=== PATIENT | female | born 1950 | race Caucasian/White ===

== ENCOUNTER 2018-01-02 05:11 | Observation (INO) ==
[2018-01-02 06:02] LABS: Basophils # 0.1 K/mcL (0.0-0.2); Basophils % 0.8 %; Eosinophils # 0.3 K/mcL (0.0-0.6); Eosinophils % 2.3 %; Hemoglobin 13.7 g/dL (11.5-15.4); Lymphocytes # 2.3 K/mcL (0.6-4.6); Lymphocytes % 19.3 %; Mean Corpuscular HGB Conc 31.9 g/dL (31.6-35.5); Mean Corpuscular Volume 84.8 fL (83.0-100.0); Mean Platelet Volume 9.4 fL (9.4-12.4); Monocytes # 0.9 K/mcL (0.0-1.3); Monocytes % 7.6 %; Neutrophils # 8.1 K/mcL (1.6-8.9); Platelet Count 334 K/mcL (140-400); Red Blood Count 5.07 M/mcL (3.82-4.97); Red Cell Distribution Width 15.1 % (11.5-14.5)
[2018-01-02 06:09] LABS: INR 1.1; Prothrombin Time 11.6 Seconds (9.4-12.1)
[2018-01-02 06:11] LABS: Activated Partial Thrombo Time 36.3 Seconds (26.0-36.0)
[2018-01-02 06:20] LABS: Alanine Aminotransferase 15 Units/L (7-52); Albumin 3.7 g/dL (3.5-5.7); Albumin/Globulin Ratio 1.1 (1.1-2.2); Alkaline Phosphatase 73 Units/L (34-104); Aspartate Amino Transferase 13 Units/L (13-39); BUN/Creatinine Ratio 16 (6-26); Bilirubin,Total 0.5 mg/dL (0.3-1.0); Blood Urea Nitrogen 12 mg/dL (8-23); Calcium 8.8 mg/dL (8.6-10.3); Carbon Dioxide 26 mEq/L (23-29); Chloride 103 mEq/L (98-107); Ethanol < 10 mg/dL (Less than 10); Globulin 3.3 g/dL (2.4-3.5); Glucose 178 mg/dL (70-105); Osmolality,Calculated 286 (280-300); Potassium 3.8 mEq/L (3.5-5.1); Sodium 136 mEq/L (136-145); eGFR For African Americans > 60 (> 60); eGFR For Non-African Americans > 60 (> 60)
[2018-01-02 07:51] LABS: Bilirubin,Urine Negative (Negative); Blood,Urine Large (Negative); Clarity,Urine Cloudy (Clear); Color,Urine Yellow (Yellow); Glucose,Urine (UA) Normal (Normal); Ketones,Urine Negative (Negative); Leukocyte Esterase,Urine Moderate (Negative); Nitrite,Urine Negative (Negative); Protein,Urine >=300 mg/dL (Neg-Trace); Urobilinogen,Urine Normal (Normal)
--- NOTE | 2018-01-02 07:58 | Emergency Department Note ---
Disposition Clinical Impression: Weakness UTI (urinary tract infection) Qualifiers: Urinary tract infection type: acute cystitis Hematuria presence: with hematuria Qualified Code(s): N30.01 - Acute cystitis with hematuria Disposition: Home, Self-Care Condition: Good Instructions: Urinary Tract Infection in Women (ED) Reasons to Return/Additional Instructions: You should follow up with your primary care physician and complete the course of antibiotics even if you feel better. Drink plenty of fluids and if he continued to have weakness he should follow up with your primary care physician you might need occupational or physical therapy and further images additional studies if warranted. Return to the emergency room should you have any chest pain shortness of breath weakness dizziness and altered mental status or fever or chills. Prescriptions: Ciprofloxacin [Cipro] 500 mg PO BID #20 tablet Referrals: Emily Barclay CNP [Primary Care Provider] - Forms: ED Satisfaction Letter Time of Disposition: 08:09 Fall HPI - General Chief Complaint: ED Fall Stated Complaint: Falls x 3 this month, increased weakness Source: patient, EMS - History of Present Illness HPI Narrative: Vision is a pleasant 67-year-old female who is presenting with repetitive falls in the past few weeks. She stated that her legs feel weak and gave out on him or. She denies any loss of imbalance or tripping over. She denies any dizziness or numbness neck stiffness or headache. She denies any shortness of breath or chest pain sheet. She denies any muscular skeletal discomfort. She denies nausea vomiting or diarrhea. She denies any urinary symptoms or vaginal complains. She denies any fever or chills. Review other systems otherwise negative except above Onset (ago): week(s) Place Fall Occurred: home Loss of Consciousness: none Symptoms Prior to Fall: lightheadedness - Related Data Home Medications Medication Instructions Recorded Confirmed ALPRAZolam [Xanax 1 MG Tablet] 0.5 mg PO TID PRN 08/06/15 11/02/17 Lisinopril [Zestril] 80 mg PO DAILY 11/02/16 11/02/17 Budesonide/Formoterol 160/4.5 1 puff IH BIDR 11/30/16 11/02/17 [Symbicort 160/4.5] Previous Rx's Medication Instructions Recorded Metoprolol XL (24 HR) Succ [Toprol 50 mg PO DAILY #30 tab.er.24h 11/04/16 XL] levoFLOXacin [Levaquin] 500 mg PO DAILY #7 tablet 11/02/17 Ciprofloxacin [Cipro] 500 mg PO BID #20 tablet 01/02/18 Allergies Allergy/AdvReac Type Severity Reaction Status Date / Time Sulfa (Sulfonamide Allergy Hives Verified 11/03/16 03:04 Antibiotics) All systems ED: reviewed and negative except as stated. Review of Systems: As Per HPI Fall PMH - Past Medical History Medical history: Reports: arthritis, COPD, hypertension, renal disease, other Surgical history: Reports: hysterectomy Psychiatric history: Reports: anxiety, depression, other - Social History Smoking Status: Current every day smoker Alcohol use: Reports: rarely Drug use: Reports: none Physical Exam - General Limitations: no limitations General appearance: alert, in no apparent distress - Head Head exam: atraumatic, normocephalic, normal inspection - Eye Eye exam: Present: normal appearance, PERRL, EOMI - Expanded Eye Exam Pupils: Left: reactive - ENT ENT exam: normal exam, normal oropharynx, mucous membranes moist - Expanded ENT Exam External ear exam: Present: normal external inspection Mouth exam: Present: normal external inspection Teeth exam: Present: normal inspection Throat exam: Present: normal inspection - Neck Neck exam: Present: normal inspection, full ROM, trachea midline - Chest Chest inspection: Present: normal inspection, symmetric chest wall rise - Respiratory Respiratory exam: Present: normal lung sounds bilaterally - Cardiovascular Cardiovascular exam: Present: regular rate, normal rhythm, normal heart sounds - Abdominal Exam Abdominal exam: Present: soft, Non-Tender. Absent: tenderness, distention, guarding, rebound, rigidity - Extremities Exam Extremities exam: Present: normal inspection, full ROM. Absent: tenderness, pedal edema - Expanded Upper Extremity Exam Shoulder exam: Present: normal inspection, full ROM Arm exam: Present: normal inspection, full ROM Elbow exam: Present: normal inspection, full ROM Forearm/Wrist exam: Present: normal inspection, full ROM Hand exam: Present: normal inspection, full ROM Vascular exam: Normal: capillary refill, radial pulse - Expanded Lower Extremity Exam Hip/Pelvis exam: Present: normal inspection, full ROM Upper leg exam: Present: normal inspection, full ROM Knee exam: Present: normal inspection, full ROM Lower leg exam: Present: normal inspection, full ROM Ankle exam: Present: normal inspection, full ROM Foot/toe exam: Present: normal inspection, full ROM Neurovascular/Tendon exam: Absent: motor deficit, sensory deficit, tendon deficit - Back Exam Back exam: Present: normal inspection, full ROM. Absent: tenderness - Neurological Exam Neurological exam: Present: alert, oriented X3, CN II-XII intact - Expanded Neurological Exam Patient oriented to: Present: person, place, time Coma Scale Eye Opening: Spontaneous Coma Scale Motor Response: Obeys Commands Coma Scale Verbal Response: Oriented Coma Scale Total: 15 - Psychiatric Psychiatric exam: Present: normal affect, normal mood - Skin Skin exam: Present: warm, dry, intact, normal color Course Vital Signs Temperature 97.0 F L 01/02/18 05:14 Pulse Rate 88 01/02/18 05:14 Respiratory Rate 18 01/02/18 05:14 Blood Pressure 128/64 01/02/18 05:14 O2 Sat by Pulse Oximetry 95 01/02/18 05:14 Temperature 97.0 F L 01/02/18 05:14 Pulse Rate 73 01/02/18 08:04 Respiratory Rate 18 01/02/18 08:04 Blood Pressure 147/63 01/02/18 08:04 O2 Sat by Pulse Oximetry 96 01/02/18 08:04 Oxygen Delivery Oxygen Delivery Room Air Fall - Lab Data Result diagrams: 01/02/18 05:53 01/02/18 05:53 Lab Results 01/02/18 01/02/18 01/02/18 Range/Units 05:53 05:53 05:53 WBC 11.9 H (4.3-11.1) K/mcL RBC 5.07 H (3.82-4.97) M/mcL Hgb 13.7 (11.5-15.4) g/dL Hct 43.0 (35.3-44.9) % MCV 84.8 (83.0-100.0) fL MCH 27.0 L (28.0-33.3) pg MCHC 31.9 (31.6-35.5) g/dL RDW 15.1 H (11.5-14.5) % Plt Count 334 (140-400) K/mcL MPV 9.4 (9.4-12.4) fL Immature Gran % 2.0 (0-4) % Seg Neutrophils % 68.0 % Lymphocytes % 19.3 % Monocytes % 7.6 % Eosinophils % 2.3 % Basophils % 0.8 % Neutrophils # 8.1 (1.6-8.9) K/mcL Lymphocytes # 2.3 (0.6-4.6) K/mcL Monocytes # 0.9 (0.0-1.3) K/mcL Eosinophils # 0.3 (0.0-0.6) K/mcL Basophils # 0.1 (0.0-0.2) K/mcL PT 11.6 (9.4-12.1) Seconds INR 1.1 APTT 36.3 H (26.0-36.0) Seconds Sodium 136 (136-145) mEq/L Potassium 3.8 (3.5-5.1) mEq/L Chloride 103 (98-107) mEq/L Carbon Dioxide 26 (23-29) mEq/L BUN 12 (8-23) mg/dL Creatinine 0.77 (0.60-1.20) mg/dL Est GFR ( Amer) > 60 (> 60) Est GFR (Non-Af Amer) > 60 (> 60) BUN/Creatinine Ratio 16 (6-26) Glucose 178 H (70-105) mg/dL Calculated Osmolality 286 (280-300) Calcium 8.8 (8.6-10.3) mg/dL Total Bilirubin 0.5 (0.3-1.0) mg/dL AST 13 (13-39) Units/L ALT 15 (7-52) Units/L Alkaline Phosphatase 73 (34-104) Units/L Serum Total Protein 7.0 (6.4-8.9) g/dL Albumin 3.7 (3.5-5.7) g/dL Globulin 3.3 (2.4-3.5) g/dL Albumin/Globulin Ratio 1.1 (1.1-2.2) Urine Color (Yellow) Urine Clarity (Clear) Urine pH (5.0-8.0) pH Units Ur Specific [place] (1.010-1.025) Urine Protein (Neg-Trace) mg/dL Urine Glucose (UA) (Normal) mg/dL Urine Ketones (Negative) mg/dL Urine Blood (Negative) Urine Nitrite (Negative) Urine Bilirubin (Negative) Urine Urobilinogen (Normal) mg/dL Ur Leukocyte Esterase (Negative) Urine Microscopic RBC (0-3) per hpf Urine Microscopic WBC (0-3) per hpf Ur Squamous Epith Cells (None-Few) per lpf Ur Renal Epithelial Cell (None-Few) per hpf Urine Bacteria (None-Few) per hpf Urine Mucus (Few) Ur Culture Indicated? (NO) Ethyl Alcohol < 10 (Less than 10) mg/dL 01/02/18 Range/Units 07:30 WBC (4.3-11.1) K/mcL RBC (3.82-4.97) M/mcL Hgb (11.5-15.4) g/dL Hct (35.3-44.9) % MCV (83.0-100.0) fL MCH (28.0-33.3) pg MCHC (31.6-35.5) g/dL RDW (11.5-14.5) % Plt Count (140-400) K/mcL MPV (9.4-12.4) fL Immature Gran % (0-4) % Seg Neutrophils % % Lymphocytes % % Monocytes % % Eosinophils % % Basophils % % Neutrophils # (1.6-8.9) K/mcL Lymphocytes # (0.6-4.6) K/mcL Monocytes # (0.0-1.3) K/mcL Eosinophils # (0.0-0.6) K/mcL Basophils # (0.0-0.2) K/mcL PT (9.4-12.1) Seconds INR APTT (26.0-36.0) Seconds Sodium (136-145) mEq/L Potassium (3.5-5.1) mEq/L Chloride (98-107) mEq/L Carbon Dioxide (23-29) mEq/L BUN (8-23) mg/dL Creatinine (0.60-1.20) mg/dL Est GFR ( Amer) (> 60) Est GFR (Non-Af Amer) (> 60) BUN/Creatinine Ratio (6-26) Glucose (70-105) mg/dL Calculated Osmolality (280-300) Calcium (8.6-10.3) mg/dL Total Bilirubin (0.3-1.0) mg/dL AST (13-39) Units/L ALT (7-52) Units/L Alkaline Phosphatase (34-104) Units/L Serum Total Protein (6.4-8.9) g/dL Albumin (3.5-5.7) g/dL Globulin (2.4-3.5) g/dL Albumin/Globulin Ratio (1.1-2.2) Urine Color Yellow (Yellow) Urine Clarity Cloudy A (Clear) Urine pH 6.0 (5.0-8.0) pH Units Ur Specific [place] 1.020 (1.010-1.025) Urine Protein >=300 H (Neg-Trace) mg/dL Urine Glucose (UA) Normal (Normal) mg/dL Urine Ketones Negative (Negative) mg/dL Urine Blood Large H (Negative) Urine Nitrite Negative (Negative) Urine Bilirubin Negative (Negative) Urine Urobilinogen Normal (Normal) mg/dL Ur Leukocyte Esterase Moderate H (Negative) Urine Microscopic RBC 30-50 H (0-3) per hpf Urine Microscopic WBC TNTC H (0-3) per hpf Ur Squamous Epith Cells Moderate H (None-Few) per lpf Ur Renal Epithelial Cell Moderate H (None-Few) per hpf Urine Bacteria Moderate H (None-Few) per hpf Urine Mucus Moderate H (Few) Ur Culture Indicated? YES A (NO) Ethyl Alcohol (Less than 10) mg/dL
[2018-01-02 07:59] LABS: Bacteria,Urine Moderate per hpf (None-Few); Mucus,Urine Moderate (Few); RBC,Urine 30-50 per hpf (0-3); Renal Epithelial Cells,Urine Moderate per hpf (None-Few); Squamous Epithelial Cell,Urine Moderate per lpf (None-Few); WBC,Urine TNTC per hpf (0-3)
[2018-01-02] MEDS ORDERED: CefTRIAXone 1,000 MG VIAL IM ONE (08:15)
[2018-01-02] MEDS ORDERED: Metoprolol XL (24 HR) Succ 50 MG TAB.ER.24H PO STA (09:35)
[2018-01-02] MEDS ORDERED: Ketorolac 30 MG/ML VIAL IVP PRN (11:22)
[2018-01-02] MEDS ORDERED: *HR* HYDROcodone/Acet 5/325 mg TABLET PO PRN (11:22)
[2018-01-02] MEDS ORDERED: Ibuprofen 400 MG TABLET PO PRN (11:22)
[2018-01-02] MEDS ORDERED: Acetaminophen 325 MG TABLET PO PRN (11:22)
[2018-01-02] MEDS ORDERED: Ondansetron 4 MG/2 ML VIAL IVP PRN (11:22)
[2018-01-02] MEDS ORDERED: Naloxone 0.4 MG/ML INJ IVP PRN ×2 (11:22)
[2018-01-02] MEDS ORDERED: *HR* OxyCODONE Immed Rel 5 MG TABLET PO PRN (11:22)
[2018-01-02] MEDS ORDERED: Budesonide/Formoterol 160/4.5 MDI IH PRN (11:22)
[2018-01-02] MEDS: ALPRAZolam 1 MG TABLET PO SCH ×3 (13:02→22:37)
[2018-01-02] MEDS ORDERED: Gadolinium Contrast Agent (WT Based) IV PRN (17:35)
--- NOTE | 2018-01-02 17:51 | Internal Med History&Physical ---
Date of Encounter: 01/02/18 Time of Encounter: 17:00 Assessment and Plan (1) Weakness Current visit: Yes Status: Acute Progressive with frequent falls. Will order brain and C-spine MRI. Will order CT of chest abdomen and pelvis to follow-up on abnormalities seen on the October 2016 scans. She will have PT and OT evaluation ordered. Additional lab work will be done in a.m. (2) Hematuria Current visit: Yes Status: Acute Will order CT of abdomen and pelvis to follow-up on possible right renal mass seen on October 2016 CT. Qualifiers: Hematuria type: unspecified type Qualified Code(s): R31.9 - Hematuria, unspecified (3) DM type 2 (diabetes mellitus, type 2) Current visit: No Status: Chronic Will check hemoglobin A1c in a.m. Qualifiers: Diabetes mellitus longterm insulin use: without longterm use Diabetes mellitus complication status: with unspecified complications Qualified Code(s) : E11.8 - Type 2 diabetes mellitus with unspecified complications (4) Hypertension Current visit: No Status: Chronic Continue Toprol and monitor blood pressure. Qualifiers: Hypertension type: essential hypertension Qualified Code(s): I10 - Essential (primary) hypertension Internal Medicine - H&P: HPI Chief complaint: Weakness and falls Admitted From: Emergency Dept Plans for Post Hospital Care: Home History of present illness: Ms. Ruiz is a 67 year old female who came to emergency room stating she has had increasing weakness of arms and legs with frequent falls at home. She states the weakness has been increasing over the past year and she is now falling almost every day due to weakness. She denies vertigo or tripping or loss of consciousness or balance. She was evaluated in emergency room and admitted to [facility] for ongoing care needs. Her muskuloskeletal history is significant for diagnoses of scoliosis and spinal stenosis. She uses a walker at home. She has had EMG and nerve conduction studies several years ago which were unremarkable per her report. She denies definitive bone joint or muscle disorders otherwise. Past Med Surg Social Fam HX - Past Medical History Medical history: arthritis, COPD, hypertension, renal disease, other Additional medical history: CHRONIC BACK PAIN Psychiatric history: anxiety, depression, other - Past Surgical History Surgical History: hysterectomy - Social History Smoking Status: Current every day smoker Smokeless Tobacco Status: No Alcohol use: rarely Drug use: none Internal Medicine - H&P: Meds ALPRAZolam [Xanax 1 MG Tablet] 2 mg PO HS 08/06/15 [History] Metoprolol XL (24 HR) Succ [Toprol XL] 50 mg PO DAILY #30 tab.er.24h 11/04/16 [ Rx] Budesonide/Formoterol 160/4.5 [Symbicort 160/4.5] 1 puff IH BIDR PRN 11/30/16 [ History] ALPRAZolam [Xanax 1 MG Tablet] 1 mg PO TID 01/02/18 [History] Furosemide [Lasix] 20 mg PO DAILY 01/02/18 [History] Paroxetine HCl [Paxil] 10 mg PO DAILY 01/02/18 [History] 3 Allergy/AdvReac Type Severity Reaction Status Date / Time Sulfa (Sulfonamide Allergy Hives Verified 11/03/16 03:04 Antibiotics) All Systems PM: A 10-system review of systems was performed and is negative for pertinent findings except as documented above in the HPI. Review of systems: Gen.: Her weight has increased from 79.832 kg on 11/02/2016 to 86.636 kg at present Cardiovascular: She has a history of hypertension but denies NE heart failure angina DVT or pulmonary embolus. She was told in the past she has a "arrhythmia " but does not know details Respiratory: She has smoked since age 16 up to 3 packs per day. She reports PFTs in the past showed COPD but she does not use supplemental oxygen. GI: She denies disorders of her liver gallbladder or exocrine pancreas : She has had kidney stones on 3 occasions in the past with hematuria. She has had retrograde pyelograms done. She denies other kidney or bladder disorders Neurologic: She denies large distribution strokes or seizures Imdur: She was diagnosed with borderline diabetes approximately 5 years ago. Hemoglobin A1c was 7.3% on 11/03/2016. She denies thyroid disease or hyperlipidemia Hematology/oncology: She was told she was anemic in the past but that has resolved. She denies known internal malignancies. She did have breast nodule seen on her last mammogram. She had CT scans of LS spine and chest done during her October 2016 hospitalization which showed abnormalities. She denies follow- up scans have been done. Psychiatric: She has diagnoses of anxiety and depression but denies other mental health issues Musk skeletal: As per history of present illness - Constitutional Vitals: Temp Pulse Resp BP Pulse Ox 98.2 F 83 16 94/64 93 01/02/18 13:57 01/02/18 13:57 01/02/18 13:57 01/02/18 13:57 01/02/18 13:57 Exam: Gen.: She is a well-developed overweight female lying in bed who appears in minimal distress at present time HEENT: Head is atraumatic. There is slight flattening of the right nasolabial fold at rest. Eyes: EOMI. There is no scleral icterus. Mouth: Mucosa is moist. Neck: Supple and nontender. There is no thyromegaly or adenopathy noted. Heart: Regular without murmurs gallops or ectopics Lungs: No wheezes or crackles are heard. Abdomen: Soft and nontender. No masses or guarding are noted. Extremities: There is no cyanosis edema or clubbing noted. Dorsalis pedis and posttibial pulses are trace palpable bilaterally. Neurologic: Mental status: She is talkative and a good historian. Cranial nerves: Smile is symmetric. There is slight flattening of the nasolabial fold right side at rest. Forehead wrinkles bilaterally. Tongue protrudes midline. EOMI. Motor: There is no pronator drift. Rapid finger movements are symmetrically intact. She is unable to lift her legs off the bed. Triceps strength seems weak symmetrically. Biceps strength is normal symmetrically. Ankle flexion and extension strength against resistance is normal symmetric. Cerebellar: Finger to nose is intact bilaterally. Skin: Warm and dry. No rashes are noted. Internal Med - H&P Results - Labs CBC & Chem 7: 01/02/18 05:53 01/02/18 05:53
[2018-01-03 05:01] LABS: Basophils # 0.1 K/mcL (0.0-0.2); Basophils % 0.8 %; Eosinophils # 0.3 K/mcL (0.0-0.6); Hematocrit 41.7 % (35.3-44.9); Hemoglobin 13.2 g/dL (11.5-15.4); Immature Granulocytes % 1.4 % (0-4); Lymphocytes # 3.5 K/mcL (0.6-4.6); Lymphocytes % 27.3 %; Mean Corpuscular HGB Conc 31.7 g/dL (31.6-35.5); Mean Corpuscular Hemoglobin 26.9 pg (28.0-33.3); Mean Corpuscular Volume 84.9 fL (83.0-100.0); Mean Platelet Volume 10.1 fL (9.4-12.4); Monocytes # 0.8 K/mcL (0.0-1.3); Monocytes % 6.2 %; Neutrophils # 7.9 K/mcL (1.6-8.9); Platelet Count 358 K/mcL (140-400); Red Blood Count 4.91 M/mcL (3.82-4.97); Red Cell Distribution Width 15.2 % (11.5-14.5); Segmented Neutrophils % 62.3 %
[2018-01-03] MEDS: ALPRAZolam 1 MG TABLET PO SCH ×4 (06:14→20:48)
[2018-01-03 06:56] LABS: Platelet Estimate Normal (Normal)
[2018-01-03] MEDS: Furosemide 20 MG TABLET PO SCH (09:05)
[2018-01-03] MEDS: Metoprolol XL (24 HR) Succ 50 MG TAB.ER.24H PO SCH (09:05)
[2018-01-03 09:38] LABS: Estimated Average Glucose 209 mg/dl; Hemoglobin A1C 8.9 %
--- NOTE | 2018-01-03 09:38 | Internal Med Progress Note ---
Date of Encounter: 01/03/18 Time of Encounter: 09:30 - Assessment and plan (1) Weakness Current Visit: Yes Status: Acute Assessment and plan: January 03. Therapy evaluations have been done per patient report. Additional lab work pending. Awaiting MRI study today. Anticipate discharge home tomorrow if stable. (2) Hematuria Current Visit: Yes Status: Acute Assessment and plan: January 03. Urine culture report pending. No worrisome abnormalities seen on abdomen CT. Qualifiers: Hematuria type: unspecified type Qualified Code(s): R31.9 - Hematuria, unspecified (3) DM type 2 (diabetes mellitus, type 2) Current Visit: No Status: Chronic Assessment and plan: January 03. Hemoglobin A1c pending. Qualifiers: Diabetes mellitus penitentiary insulin use: without longwall machine operator helper use Diabetes mellitus complication status: with unspecified complications Qualified Code(s) : E11.8 - Type 2 diabetes mellitus with unspecified complications (4) Hypertension Current Visit: No Status: Chronic Assessment and plan: January 03. Continue Toprol. Qualifiers: Hypertension type: essential hypertension Qualified Code(s): I10 - Essential (primary) hypertension - Subjective Interval history: January 03. She has no new complaints except discomfort in her knees. - Constitutional Vitals: Temp Pulse Resp BP Pulse Ox 98.4 F 89 17 132/64 92 01/03/18 06:44 01/03/18 09:04 01/03/18 06:44 01/03/18 09:04 01/03/18 06:44 Exam: She is resting comfortably in bed and appears in no acute distress. Her affect is bright and cheerful. She has no significant effusion of her knees. I reviewed her medications. I discussed pertinent lab and CT results with her. Internal Medicine: Result - Labs CBC & Chem 7: 01/03/18 04:20 01/02/18 05:53 Labs: Short CBC 01/03/18 Range/Units 04:20 WBC 12.7 H (4.3-11.1) K/mcL Hgb 13.2 (11.5-15.4) g/dL Hct 41.7 (35.3-44.9) % Plt Count 358 (140-400) K/mcL Neutrophils # 7.9 (1.6-8.9) K/mcL - ABG Interpretation ABG results: PT/INR, D-dimer PT 11.6 Seconds (9.4-12.1) 01/02/18 05:53 - Impressions Impressions Abdomen/Pelvis CT 01/02/18 17:37 IMPRESSION: 1. Improvement in the linear thickening in the posterior right lower lobe since the prior exam. Bibasilar atelectasis and scarring. 2. Stable renal cysts including small hemorrhagic/proteinaceous cysts in the left kidney. 3. Colonic diverticulosis without evidence of acute diverticulitis. 4. Poor assessment of the urinary bladder. D/ / Gm Holt MD / Gm Holt MD Interpreting Provider: Gm Holt MD Chest CT 01/02/18 17:37 IMPRESSION: 1. Improvement in the linear thickening in the posterior right lower lobe since the prior exam. Bibasilar atelectasis and scarring. 2. Stable renal cysts including small hemorrhagic/proteinaceous cysts in the left kidney. 3. Colonic diverticulosis without evidence of acute diverticulitis. 4. Poor assessment of the urinary bladder. D/ / Gm Holt MD / Gm Holt MD Interpreting Provider: Gm Holt MD Consult Discharge Plan - Plan Referrals: Emily Barclay, CATALYTIC CONVERTER OPERATOR HELPER [Primary Care Provider] - 1 week
[2018-01-03] MEDS: Acetaminophen 325 MG TABLET PO SCH ×2 (13:29→17:49)
[2018-01-03] MEDS ORDERED: cefTRIAXone 1,000 MG in Water for inj. (sterile) 20 ML 10 ML IVP ONE (19:00)
[2018-01-03] MEDS: Lactobacillus 1 EACH CAP.SPRINK PO SCH (20:47)
[2018-01-04] MEDS: Acetaminophen 325 MG TABLET PO SCH ×3 (00:12→11:47)
[2018-01-04] MEDS: ALPRAZolam 1 MG TABLET PO SCH ×2 (05:52→11:47)
[2018-01-04 08:01] VITALS: BP 120/65
[2018-01-04] MEDS: Metoprolol XL (24 HR) Succ 50 MG TAB.ER.24H PO SCH (08:50)
[2018-01-04] MEDS: Lactobacillus 1 EACH CAP.SPRINK PO SCH (08:51)
[2018-01-04] MEDS: Furosemide 20 MG TABLET PO SCH (08:51)
--- NOTE | 2018-01-04 10:43 | Discharge Summary ---
Orders not resulted at time of discharge: Pending orders 01/03/18 04:20 SHEN IgG TIM rflx IFA AM 0400 Aldolase, Serum AM 0400 Date of Encounter: 01/04/18 Time of Encounter: 10:25 - Discharge Diagnosis (1) Cervical spinal stenosis Priority: Primary Status: Chronic (2) Cerebral ventriculomegaly Priority: Secondary Status: Acute (3) Weakness Priority: Secondary Status: Acute (4) Hematuria Priority: Secondary Status: Acute Qualifiers: Hematuria type: unspecified type Qualified Code(s): R31.9 - Hematuria, unspecified (5) DM type 2 (diabetes mellitus, type 2) Priority: Secondary Status: Chronic Qualifiers: Diabetes mellitus detention insulin use: without detention use Diabetes mellitus complication status: with unspecified complications Qualified Code(s) : E11.8 - Type 2 diabetes mellitus with unspecified complications (6) Hypertension Priority: Secondary Status: Chronic Qualifiers: Hypertension type: essential hypertension Qualified Code(s): I10 - Essential (primary) hypertension Hospital course: Ms. Ruiz is a 67 year old female who came to emergency room stating she has had increasing weakness of arms and legs with frequent falls at home. She states the weakness has been increasing over the past year and she is now falling almost every day due to weakness. She denies vertigo or tripping or loss of consciousness or balance. She was evaluated in emergency room and admitted to [facility] for ongoing care needs. Initial orders were written by the emergency room physician. I saw her on January 02 and performed the history and physical. CT of chest abdomen pelvis was ordered follow-up on abnormalities seen on the 2017 scans. There was no worrisome pathology seen suspicious for malignancy of lungs or abdomen. MRI of brain and C-spine was done to evaluate progressive weakness of arms and legs. There was ventricular dilatation out of proportion to cortical sulci with a component of hydrocephalus not excluded. Cervical spine MRI showed multilevel neural foraminal narrowing with multilevel spinal canal stenosis and disc bulging. I discussed the MRI findings with patient and her and told her I recommended she be transferred for neurosurgical evaluation. She was agreeable to be transferred [facility]. - Time Spent with Patient Total time spent providing and/or coordinating discharge services: - Discharge Medications Home Medications: ALPRAZolam [Xanax 1 MG Tablet] 2 mg PO HS 08/06/15 [History] Metoprolol XL (24 HR) Succ [Toprol XL] 50 mg PO DAILY #30 tab.er.24h 11/04/16 [ Rx] Budesonide/Formoterol 160/4.5 [Symbicort 160/4.5] 1 puff IH BIDR PRN 11/30/16 [ History] ALPRAZolam [Xanax 1 MG Tablet] 1 mg PO TID 01/02/18 [History] Furosemide [Lasix] 20 mg PO DAILY 01/02/18 [History] Paroxetine HCl [Paxil] 10 mg PO DAILY 01/02/18 [History] Allergies/Adverse Reactions: 3 Allergy/AdvReac Type Severity Reaction Status Date / Time Sulfa (Sulfonamide Allergy Hives Verified 11/03/16 03:04 Antibiotics) Date of admission: 01/02/18 10:43 Primary care physician: Emily Barclay CNP Consults: 01/02/18 17:46 Consult to Occupational Therapy [CONS] Routine Comment: Evaluate, develop and implement POC Reason for Consult: Progressive arm and leg weakness Does patient have active BEDREST order?: No Is patient medically & hemodynamically stable?: Yes Patient assessed for mobility or mobilized this visit?: Yes Consult to Physical Therapy [CONS] Routine Comment: Evaluate, develop and implement POC Reason for Consult: Progressive arm and leg weakness Does patient have active BEDREST order?: No Is patient medically & hemodynamically stable?: Yes Patient assessed for mobility or mobilized this visit?: Yes - Constitutional Vitals: Temp Pulse Resp BP Pulse Ox 97.8 F 64 16 120/65 90 01/04/18 07:00 01/04/18 07:00 01/04/18 07:00 01/04/18 07:00 01/04/18 07:00 - Patient Status Disposition: Transfer Other Condition: Good - Discharge Instructions
[2018-01-05 07:25] LABS: Aldolase, Serum 4.3 U/L (1.5-8.1)
[2018-01-05 07:31] LABS: ANA IgG by ELISA NONE DETECTED (None Detected)
== END 2018-01-04 12:10 | disposition short-term general hospital (02) ==
LOC: INPPIK 05:11 → EMEROOPIK 05:11 → INPPIK 10:59
PROVIDERS: ADMIT Internal Medicine; ATTEND Internal Medicine

== ENCOUNTER 2018-01-12 10:24 | Inpatient (IN) ==
[2018-01-12] MEDS ORDERED: Acetaminophen 325 MG TABLET PO PRN (15:39)
[2018-01-12] MEDS ORDERED: Ipratropium/Albuterol Neb 3 ML IH PRN (15:42)
[2018-01-12] MEDS ORDERED: clonazePAM 0.5 MG TABLET PO SCH (21:00)
[2018-01-12] MEDS: clonazePAM 0.5 MG TABLET PO SCH (21:53)
[2018-01-12] MEDS: Budesonide/Formoterol 160/4.5 MDI IH SCH (22:23)
[2018-01-13] MEDS: clonazePAM 0.5 MG TABLET PO SCH ×3 (09:14→20:55)
[2018-01-13] MEDS: Cyanocobalamin (B-12) 1,000 MCG TABLET PO SCH (09:14)
[2018-01-13] MEDS: Cholecalciferol (D-3) 1,000 UNIT TABLET PO SCH (09:14)
[2018-01-13] MEDS: Metoprolol XL (24 HR) Succ 50 MG TAB.ER.24H PO SCH (09:14)
[2018-01-13] MEDS: Budesonide/Formoterol 160/4.5 MDI IH SCH ×2 (11:20→22:10)
--- NOTE | 2018-01-13 16:04 | Internal Med History&Physical ---
Date of Encounter: 01/13/18 Time of Encounter: 15:40 Assessment and Plan (1) Weakness Current visit: No Status: Acute She will have physical therapy and occupational therapy evaluations with ongoing interventions. (2) DM type 2 (diabetes mellitus, type 2) Current visit: No Status: Chronic Hemoglobin A1c was elevated at 8.9% on 01/03/2018. Will start metformin and do Accu-Cheks with SSI. Qualifiers: Diabetes mellitus prison insulin use: without superintendent marine oil terminal use Diabetes mellitus complication status: with unspecified complications Qualified Code(s) : E11.8 - Type 2 diabetes mellitus with unspecified complications (3) Hypertension Current visit: No Status: Chronic Continue Toprol and monitor blood pressure. Qualifiers: Hypertension type: essential hypertension Qualified Code(s): I10 - Essential (primary) hypertension (4) Cervical spinal stenosis Current visit: No Status: Chronic Continue Tylenol Internal Medicine - H&P: HPI Chief complaint: Weakness and falls Admitted From: Hospital to Hospital Transfer Plans for Post Hospital Care: Home History of present illness: Ms. Ruiz is a 67 year old female who was admitted to [facility] swing bed January 12 after a January 04-January 12 [facility] stay for further evaluation of abnormal brain and C-spine MRI. She had been at [facility] January 02- for weakness and falls at home. Evaluation at [facility] included lumbar puncture with pre- and post PT assessment showing no significant improvement. NPH was felt unlikely and ADJUSTER AND INSPECTOR shunt was not performed. Nonsurgical intervention was recommended for cervical spinal stenosis. Encephalopathy was evaluated by behavioral health physician with medications adjustments made. She was transferred to swing bed for ongoing therapy needs prior to returning to independent living. Her muskuloskeletal history is significant for diagnoses of scoliosis and spinal stenosis. She uses a walker at home. She has had EMG and nerve conduction studies several years ago which were unremarkable per her report. She denies gout or bone joint or muscle disorders otherwise. Past Med Surg Social Fam HX - Past Medical History Medical history: arthritis, COPD, hypertension, renal disease, other Additional medical history: CHRONIC BACK PAIN Psychiatric history: anxiety, depression, other - Past Surgical History Surgical History: hysterectomy Additional surgical history: tonsilectomy - Social History Smoking Status: Former smoker Smokeless Tobacco Status: No Alcohol use: rarely Drug use: none Internal Medicine - H&P: Meds ALPRAZolam [Xanax 1 MG Tablet] 2 mg PO HS 08/06/15 [History] Metoprolol XL (24 HR) Succ [Toprol XL] 50 mg PO DAILY #30 tab.er.24h 11/04/16 [ Rx] Budesonide/Formoterol 160/4.5 [Symbicort 160/4.5] 1 puff IH BIDR PRN 11/30/16 [ History] ALPRAZolam [Xanax 1 MG Tablet] 1 mg PO TID 01/02/18 [History] Furosemide [Lasix] 20 mg PO DAILY 01/02/18 [History] Paroxetine HCl [Paxil] 10 mg PO DAILY 01/02/18 [History] 3 Allergy/AdvReac Type Severity Reaction Status Date / Time Sulfa (Sulfonamide Allergy Hives Verified 11/03/16 03:04 Antibiotics) All Systems PM: A 10-system review of systems was performed and is negative for pertinent findings except as documented above in the HPI. Review of systems: Review of systems from her recent December 2017 [facility] hospitalization were reviewed and revised as below. Gen.: Her weight has increased from 79.832 kg on 11/02/2016 to 86.636 kg on admission 10 days ago. Cardiovascular: She has a history of hypertension but denies OH heart failure angina DVT or pulmonary embolus. She was told in the past she has a "arrhythmia " but does not know details. The discharge summary from [facility] reports paroxysmal atrial fibrillation. Respiratory: She has smoked since age 16 up to 3 packs per day. She reports PFTs in the past showed COPD but she does not use supplemental oxygen. GI: She denies disorders of her liver gallbladder or exocrine pancreas : She has had kidney stones on 3 occasions in the past with hematuria. She has had retrograde pyelograms done. She denies other kidney or bladder disorders Neurologic: She denies large distribution strokes or seizures Imdur: She was diagnosed with borderline diabetes approximately 5 years ago. Hemoglobin A1c was 8.9% on 01/03/2018. She denies thyroid disease or hyperlipidemia Hematology/oncology: She was told she was anemic in the past but that has resolved. She denies known internal malignancies. She did have breast nodule seen on her last mammogram. Psychiatric: She has diagnoses of anxiety and depression but denies other mental health issues Musk skeletal: As per history of present illness - Constitutional Vitals: Temp Pulse Resp BP Pulse Ox 98.4 F 78 16 105/53 96 01/13/18 10:00 01/13/18 10:00 01/13/18 10:00 01/13/18 10:00 01/13/18 10:00 Exam: Gen.: She is a well-developed overweight female resting comfortably in bed who appears in no acute distress HEENT: Head is atraumatic and normocephalic. Eyes: EOMI. There is no scleral icterus. Mouth: Mucosa is moist. Neck: Supple and nontender. There is no thyromegaly or adenopathy noted. Heart: Regular without murmurs gallops or ectopics Lungs: No wheezes or crackles are heard. Abdomen: Soft and nontender. No masses or guarding are noted. Extremities: There is no cyanosis edema or clubbing noted. Dorsalis pedis and posterior tibial pulses are 1-2 over 2 bilaterally. Neurologic: Mental status: She is talkative and a good historian. Cranial nerves: Smile is symmetric. Forehead wrinkles bilaterally. Tongue protrudes midline. EOMI. Motor: There is no pronator drift. Cerebellar: Finger to nose is intact bilaterally. Skin: Warm and dry
[2018-01-14] MEDS: Cholecalciferol (D-3) 1,000 UNIT TABLET PO SCH (08:00)
[2018-01-14] MEDS: clonazePAM 0.5 MG TABLET PO SCH ×3 (08:01→20:07)
[2018-01-14] MEDS: Metoprolol XL (24 HR) Succ 50 MG TAB.ER.24H PO SCH (08:01)
[2018-01-14] MEDS: Cyanocobalamin (B-12) 1,000 MCG TABLET PO SCH (08:01)
[2018-01-14] MEDS: Budesonide/Formoterol 160/4.5 MDI IH SCH ×2 (10:54→22:53)
--- NOTE | 2018-01-14 11:46 | Internal Med Progress Note ---
Date of Encounter: 01/14/18 Time of Encounter: 11:40 - Assessment and plan (1) Weakness Current Visit: No Status: Acute Assessment and plan: January 14. Continue PT and OT intervention. (2) DM type 2 (diabetes mellitus, type 2) Current Visit: No Status: Chronic Assessment and plan: January 14. Hemoglobin A1c was elevated at 8.9% on 01/03/2018. Continue metformin and Accu-Cheks with SSI. Qualifiers: Diabetes mellitus superintendent terminal insulin use: without superintendent terminal use Diabetes mellitus complication status: with unspecified complications Qualified Code(s) : E11.8 - Type 2 diabetes mellitus with unspecified complications (3) Hypertension Current Visit: No Status: Chronic Assessment and plan: January 14. Continue Toprol. Qualifiers: Hypertension type: essential hypertension Qualified Code(s): I10 - Essential (primary) hypertension (4) Cervical spinal stenosis Current Visit: No Status: Chronic Assessment and plan: January 14. Continue Tylenol. - Subjective Interval history: January 14. She has no new complaints and feels well. She denies pain or dyspnea. She states she has been walking in the hallway with her . - Constitutional Vitals: Temp Pulse Resp BP Pulse Ox 98.3 F 93 16 113/64 93 01/14/18 06:13 01/14/18 06:13 01/14/18 06:13 01/14/18 06:13 01/14/18 06:13 Exam: She is sitting on the side of bed resting comfortably. Her affect is bright and cheerful. I reviewed her medications and lab results. Consult Discharge Plan - Plan Referrals: Emily Barclay, [employer]ACHINE [Primary Care Provider] - 1 week
[2018-01-14] MEDS: *HR* Metformin 500 MG TABLET PO SCH (15:59)
[2018-01-15] MEDS: Cyanocobalamin (B-12) 1,000 MCG TABLET PO SCH (09:13)
[2018-01-15] MEDS: Metoprolol XL (24 HR) Succ 50 MG TAB.ER.24H PO SCH (09:13)
[2018-01-15] MEDS: Cholecalciferol (D-3) 1,000 UNIT TABLET PO SCH (09:13)
[2018-01-15] MEDS: *HR* Metformin 500 MG TABLET PO SCH ×2 (09:13→17:02)
[2018-01-15] MEDS: clonazePAM 0.5 MG TABLET PO SCH ×3 (09:13→21:17)
[2018-01-15] MEDS: Budesonide/Formoterol 160/4.5 MDI IH SCH ×2 (10:02→23:40)
[2018-01-16] MEDS: Cyanocobalamin (B-12) 1,000 MCG TABLET PO SCH (08:25)
[2018-01-16] MEDS: Cholecalciferol (D-3) 1,000 UNIT TABLET PO SCH (08:25)
[2018-01-16] MEDS: Metoprolol XL (24 HR) Succ 50 MG TAB.ER.24H PO SCH (08:25)
[2018-01-16] MEDS: *HR* Metformin 500 MG TABLET PO SCH ×2 (08:25→15:53)
[2018-01-16] MEDS: clonazePAM 0.5 MG TABLET PO SCH ×3 (08:26→20:37)
[2018-01-16] MEDS: Budesonide/Formoterol 160/4.5 MDI IH SCH ×2 (11:05→22:35)
[2018-01-17] MEDS: Cholecalciferol (D-3) 1,000 UNIT TABLET PO SCH (09:28)
[2018-01-17] MEDS: Metoprolol XL (24 HR) Succ 50 MG TAB.ER.24H PO SCH (09:28)
[2018-01-17] MEDS: *HR* Metformin 500 MG TABLET PO SCH ×2 (09:28→17:04)
[2018-01-17] MEDS: Cyanocobalamin (B-12) 1,000 MCG TABLET PO SCH (09:28)
[2018-01-17] MEDS: clonazePAM 0.5 MG TABLET PO SCH ×3 (09:28→20:30)
[2018-01-17] MEDS: Budesonide/Formoterol 160/4.5 MDI IH SCH ×2 (11:02→21:35)
--- NOTE | 2018-01-17 12:24 | Internal Med Progress Note ---
Date of Encounter: 01/17/18 Time of Encounter: 12:15 - Assessment and plan (1) Weakness Current Visit: No Status: Acute Assessment and plan: January 14. Continue PT and OT intervention. January 17. Continue therapy. Anticipate discharge home January 20. (2) DM type 2 (diabetes mellitus, type 2) Current Visit: No Status: Chronic Assessment and plan: January 14. Hemoglobin A1c was elevated at 8.9% on 01/03/2018. Continue metformin and Accu-Cheks with SSI. Qualifiers: Diabetes mellitus oil heaterman insulin use: without assisted use Diabetes mellitus complication status: with unspecified complications Qualified Code(s) : E11.8 - Type 2 diabetes mellitus with unspecified complications (3) Hypertension Current Visit: No Status: Chronic Assessment and plan: January 14. Continue Toprol. Qualifiers: Hypertension type: essential hypertension Qualified Code(s): I10 - Essential (primary) hypertension (4) Cervical spinal stenosis Current Visit: No Status: Chronic Assessment and plan: January 14. Continue Tylenol. - Subjective Interval history: January 14. She has no new complaints and feels well. She denies pain or dyspnea. She states she has been walking in the hallway with her . January 17. She has no new complaints and feels improved. - Constitutional Vitals: Temp Pulse Resp BP Pulse Ox 98.1 F 82 16 106/64 93 01/17/18 06:30 01/17/18 06:30 01/17/18 06:30 01/17/18 06:30 01/17/18 06:30 Exam: She is lying comfortably in bed and appears in no acute distress. She is alert and appropriate in conversation. Her affect is cheerful. She does not appear in pain. I reviewed her medications. Consult Discharge Plan - Plan Referrals: Emily Barclay, RN [employer] [employer] [Primary Care Provider] - 1 week
[2018-01-18] MEDS: *HR* Metformin 500 MG TABLET PO SCH ×2 (08:19→17:06)
[2018-01-18] MEDS: Cholecalciferol (D-3) 1,000 UNIT TABLET PO SCH (08:19)
[2018-01-18] MEDS: Metoprolol XL (24 HR) Succ 50 MG TAB.ER.24H PO SCH (08:19)
[2018-01-18] MEDS: clonazePAM 0.5 MG TABLET PO SCH ×3 (08:19→21:18)
[2018-01-18] MEDS: Cyanocobalamin (B-12) 1,000 MCG TABLET PO SCH (08:19)
[2018-01-18] MEDS: Budesonide/Formoterol 160/4.5 MDI IH SCH ×2 (09:56→22:59)
[2018-01-19] MEDS: Cholecalciferol (D-3) 1,000 UNIT TABLET PO SCH (09:06)
[2018-01-19] MEDS: clonazePAM 0.5 MG TABLET PO SCH ×3 (09:06→21:18)
[2018-01-19] MEDS: Metoprolol XL (24 HR) Succ 50 MG TAB.ER.24H PO SCH (09:07)
[2018-01-19] MEDS: *HR* Metformin 500 MG TABLET PO SCH ×2 (09:07→18:09)
[2018-01-19] MEDS: Cyanocobalamin (B-12) 1,000 MCG TABLET PO SCH (09:07)
[2018-01-19] MEDS: Budesonide/Formoterol 160/4.5 MDI IH SCH ×2 (09:51→21:21)
[2018-01-20] MEDS: *HR* Metformin 500 MG TABLET PO SCH (07:20)
--- NOTE | 2018-01-20 09:47 | Discharge Summary ---
Date of Encounter: 01/20/18 Time of Encounter: 09:35 - Discharge Diagnosis (1) Weakness Priority: Primary Status: Acute (2) DM type 2 (diabetes mellitus, type 2) Priority: Secondary Status: Chronic Qualifiers: Diabetes mellitus halfway insulin use: without oil heaterman use Diabetes mellitus complication status: with unspecified complications Qualified Code(s) : E11.8 - Type 2 diabetes mellitus with unspecified complications (3) Hypertension Priority: Secondary Status: Chronic Qualifiers: Hypertension type: essential hypertension Qualified Code(s): I10 - Essential (primary) hypertension (4) Cervical spinal stenosis Priority: Secondary Status: Chronic Hospital course: Ms. Ruiz is a 67 year old female who was admitted to [facility] swing bed January 12 after a January 04-January 12 [facility] stay for further evaluation of abnormal brain and C-spine MRI. She had been at [facility] January 02 for weakness and falls at home. Evaluation at [facility] included lumbar puncture with pre- and post PT assessment showing no significant improvement. NPH was felt unlikely and PRODUCTION LABORER shunt was not performed. Nonsurgical intervention was recommended for cervical spinal stenosis. Encephalopathy was evaluated by behavioral health physician with medications adjustments made. She was transferred to swing bed for ongoing therapy needs prior to returning to independent living. Initial orders written by the discharging physicians at [facility]. I saw her on January 13 and performed the swing bed history and physical. She had physical therapy and occupational therapy evaluations with ongoing interventions. She made satisfactory progress. Tylenol and Lidoderm patches were used for pain with adequate control. Anxiety remain well controlled on Klonopin at doses started at [facility]. On January 20 she was stable for discharge home. She will follow with her PCP Emily Barclay CNP within 1 week. - Time Spent with Patient Total time spent providing and/or coordinating discharge services: - Discharge Medications Prescriptions: clonazePAM [Klonopin] 1 mg PO 0900,1500 7 Days #14 tablet clonazePAM [Klonopin] 1.5 mg PO HS 7 Days #21 tablet Lidocaine Patch [Lidoderm 5% patch] 1 each TP DAILY #7 adh..patch Metoprolol XL (24 HR) Succ [Toprol Xl] 50 mg PO DAILY #30 tab.er.24h Sertraline [Zoloft] 25 mg PO DAILY #30 tablet Home Medications: Budesonide/Formoterol 160/4.5 [Symbicort 160/4.5] 1 puff IH BIDR PRN 11/30/16 [ History] Lidocaine Patch [Lidoderm 5% patch] 1 each TP DAILY #7 adh..patch 01/20/18 [Rx] Metoprolol XL (24 HR) Succ [Toprol Xl] 50 mg PO DAILY #30 tab.er.24h 01/20/18 [ Rx] Sertraline [Zoloft] 25 mg PO DAILY #30 tablet 01/20/18 [Rx] clonazePAM [Klonopin] 1 mg PO 0900,1500 7 Days #14 tablet 01/20/18 [Rx] clonazePAM [Klonopin] 1.5 mg PO HS 7 Days #21 tablet 01/20/18 [Rx] Allergies/Adverse Reactions: 3 Allergy/AdvReac Type Severity Reaction Status Date / Time Sulfa (Sulfonamide Allergy Hives Verified 11/03/16 03:04 Antibiotics) Date of admission: 01/12/18 13:54 Primary care physician: Emily Barclay CNP Consults: 01/12/18 14:01 Consult to Physical Therapy [CONS] Routine Comment: Evaluate, develop and implement POC Reason for Consult: weakness Does patient have active BEDREST order?: No Is patient medically & hemodynamically stable?: Yes OT [Consult to Occupational Therapy] [CONS] Routine Comment: Evaluate, develop and implement POC Reason for Consult: weakness Does patient have active BEDREST order?: No Is patient medically & hemodynamically stable?: Yes 01/12/18 16:07 Consult to Grief Counsellor [CONS] Routine Reason for SW Consult: - Constitutional Vitals: Temp Pulse Resp BP Pulse Ox 98.8 F 78 17 112/71 93 01/20/18 06:14 01/20/18 06:14 01/20/18 06:14 01/20/18 06:14 01/20/18 06:14 - Patient Status Disposition: Home Health Service - Discharge Instructions Follow Up With: Emily Barclay CNP [Primary Care Provider] - 1 week - Diet and Activity Activity: as per physical therapy Diet: advance to your usual diet
--- NOTE | 2018-01-20 09:52 | Physician Discharge Referral ---
Home Health/Hosp Referral Info Transfer to: Home Health Attending Provider: Adams Provider in Charge Post Discharge: PCP (Emily Barclay CNP) - Diagnosis (1) Weakness Priority: Primary Status: Acute (2) DM type 2 (diabetes mellitus, type 2) Priority: Secondary Status: Chronic (3) Hypertension Priority: Secondary Status: Chronic (4) Cervical spinal stenosis Priority: Secondary Status: Chronic - Respiratory Orders Smoking Cessation: Smoking cessation has been advised. For more information, call the [place] Tobacco Quit Line at 7-813-GGXC-NOW. - Diet/Nutrition Diet/Nutrition Orders: No Concentrated Sweets - Activity Activity Orders: Ambulate - Services Needed Following services are medically necessary services: Nursing, Home Health Aide, Physical Therapy, Occupational Therapy - Transfer Medications Prescriptions: clonazePAM [Klonopin] 1 mg PO 0900,1500 7 Days #14 tablet clonazePAM [Klonopin] 1.5 mg PO HS 7 Days #21 tablet Lidocaine Patch [Lidoderm 5% patch] 1 each TP DAILY #7 adh..patch Metoprolol XL (24 HR) Succ [Toprol Xl] 50 mg PO DAILY #30 tab.er.24h Sertraline [Zoloft] 25 mg PO DAILY #30 tablet Home Medications: Budesonide/Formoterol 160/4.5 [Symbicort 160/4.5] 1 puff IH BIDR PRN 11/30/16 [ History] Lidocaine Patch [Lidoderm 5% patch] 1 each TP DAILY #7 adh..patch 01/20/18 [Rx] Metoprolol XL (24 HR) Succ [Toprol Xl] 50 mg PO DAILY #30 tab.er.24h 01/20/18 [ Rx] Sertraline [Zoloft] 25 mg PO DAILY #30 tablet 01/20/18 [Rx] clonazePAM [Klonopin] 1 mg PO 0900,1500 7 Days #14 tablet 01/20/18 [Rx] clonazePAM [Klonopin] 1.5 mg PO HS 7 Days #21 tablet 01/20/18 [Rx] Allergies/Adverse Reactions: 3 Allergy/AdvReac Type Severity Reaction Status Date / Time Sulfa (Sulfonamide Allergy Hives Verified 11/03/16 03:04 Antibiotics) Certification: Further, I certify that my clinical findings support that this patient is homebound (i.e. absences from home require considerable and taxing effort and are for medical reasons or jain services or infrequently or short duration when for other reasons) because: Homebound Reason: Leaving home requires considerable and taxing effort due to condition (Impaired walking ability secondary to cervical spine stenosis.) Attestation: My signature below is to certify that this patient is under my care and that I, or nurse practitioner, or a physician's health care assistant working with me, has a face-to -face encounter with this patient.
[2018-01-20 10:06] VITALS: BP 128/64
[2018-01-20] MEDS: Cyanocobalamin (B-12) 1,000 MCG TABLET PO SCH (10:06)
[2018-01-20] MEDS: Metoprolol XL (24 HR) Succ 50 MG TAB.ER.24H PO SCH (10:06)
[2018-01-20] MEDS: clonazePAM 0.5 MG TABLET PO SCH (10:06)
[2018-01-20] MEDS: Cholecalciferol (D-3) 1,000 UNIT TABLET PO SCH (10:06)
== END 2018-01-20 10:55 | disposition home health service (06) | DRG 945 ==
LOC: INPPIK 13:54
PROVIDERS: ADMIT Internal Medicine; ATTEND Internal Medicine